=== PATIENT | female | born 1955 | race African-American/Black ===

== ENCOUNTER 2019-05-07 09:45 | Emergency (ER) | payer BC, MEDICARE ==
[~2019-05-07] VITALS: Ht 170.2 cm; Wt 88.1 kg
[~2019-05-07 09:45] MED LIST: ACET500T33 PO; ASCO-151 PO; ASPI-630 PO; ATOR20TA58 PO; CALC-98 PO; DEXA4TAB PO; HYDR-2759 PO; INSU100C4 SQ; INSU100I13 SQ; LOSA100T14 PO; METF10007 PO; NAPR-695 PO; ONDA8TAB14 PO; OXYC1TAB15 PO; PROC5TAB14 PO; VITA1CAP PO
--- NOTE | 2019-05-07 10:47 | PHYS DOC ---
Past Medical History Past Medical History: Cancer, CVA, Diabetes-Type II, Hypertension, Other Additional Past Medical Histor: "lymph node cancer" Past Surgical History: Tonsillectomy, Other Additional Past Surgical Histo: foot, shoulder,lymph node removal bilat axila Alcohol Use: Rarely Drug Use: None Adult General Chief Complaint Chief Complaint: HYPERTENSION HPI HPI Patient is a 63 y/o AAF, who has a Hx of HTN, who presents to the emergency room for evaluation. She states that she felt a little nauseated and lightheaded earlier in the day today and went to an urgent care center. They checked her blood pressure, which was 2:15 systolic, and sent her to the emergency [facility]. The patient states that she did not take her blood pressure medication this morning but took it at the urgent care facility, and by the time she arrives in the emergency department she is completely asymptomatic. She denies any current dizziness, and has not had any chest pain, headache, and denies any current nausea, has not had any abdominal pain, vomiting, diarrhea, numbness, weakness, or vision changes. Her blood pressure is currently 168/71. She is currently asymptomatic. 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 There are no alleviating or exacerbating factors to the patient's symptoms, except as noted above. Review of Systems Review of Systems Constitutional: Denies fever or chills [] Eyes: Denies change in visual acuity, redness, or eye pain [] HENT: Denies nasal congestion or sore throat [] Respiratory: Denies cough or shortness of breath [] Cardiovascular: The patient denies any shortness of breath, chest pain, palpitations, or orthopnea [] GI: Denies abdominal pain, current nausea, vomiting, bloody stools or diarrhea [] : Denies dysuria or hematuria [] Musculoskeletal: Denies back pain or joint pain [] Integument: Denies rash or skin lesions [] Neurologic: Denies headache, focal weakness or sensory changes [] Endocrine: Denies polyuria or polydipsia [] All other systems were reviewed and found to be within normal limits, except as documented in this note. Allergies Allergies Allergies Coded Allergies Type Severity Reaction Last Updated Verified hydrochlorothiazide Allergy Intermediate Rash 08/20/18 Yes lisinopril Adverse Reaction Unknown HEARTBURN SYMPTOMS (CHEST PAIN) 08/19/18 Yes Uncoded Allergies Type Severity Reaction Last Updated Verified CHLORINE Allergy Intermediate Rash 08/16/18 Physical Exam Physical Exam PHYSICAL EXAM: CONSTITUTIONAL: Well developed, well nourished HEAD: normocephalic, atraumatic EENT: PERRL, EOMI. Conjunctivae normal color, sclerae non-icteric; moist mucous membranes. NECK: Supple, non-tender; no meningismus. LUNGS: Lungs CTA, breathing even and unlabored. Normal air movement. HEART: Regular rate and rhythm, no murmur CHEST: No deformity; non-tender ABDOMEN: The abdomen is soft, and non-tender, no masses or bruits. EXTREM: Normal ROM; no deformity, no calf tenderness. Normal pulses palpable in all extremities. There is no pedal edema. SKIN: No rash; no diaphoresis NEURO: Alert; normal speech and cognition; CN's grossly intact; strength grossly intact without focal deficit. BACK: No CVA TTP. Current Patient Data Vital Signs Vital Signs Date Time Temp Pulse Resp B/P (MAP) Pulse Ox O2 Delivery O2 Flow Rate FiO2 05/07/19 09:55 97.7 74 20 191/73 (112) 100 Room Air 97.7 Lab Values Laboratory Tests Test 05/07/19 11:00 White Blood Count 10.3 x10^3/uL (4.0-11.0) Red Blood Count 3.80 x10^6/uL (3.50-5.40) Hemoglobin 11.0 g/dL (12.0-15.5) L Hematocrit 32.1 % (36.0-47.0) L Mean Corpuscular Volume 84 fL (79-100) Mean Corpuscular Hemoglobin 29 pg (25-35) Mean Corpuscular Hemoglobin Concent 34 g/dL (31-37) Red Cell Distribution Width 17.2 % (11.5-14.5) H Platelet Count 280 x10^3/uL (140-400) Neutrophils (%) (Auto) 80 % (31-73) H Lymphocytes (%) (Auto) 13 % (24-48) L Monocytes (%) (Auto) 6 % (0-9) Eosinophils (%) (Auto) 2 % (0-3) Basophils (%) (Auto) 1 % (0-3) Neutrophils # (Auto) 8.2 x10^3/uL (1.8-7.7) H Lymphocytes # (Auto) 1.3 x10^3/uL (1.0-4.8) Monocytes # (Auto) 0.6 x10^3/uL (0.0-1.1) Eosinophils # (Auto) 0.2 x10^3/uL (0.0-0.7) Basophils # (Auto) 0.1 x10^3/uL (0.0-0.2) Sodium Level 141 mmol/L (136-145) Potassium Level 4.3 mmol/L (3.5-5.1) Chloride Level 105 mmol/L (98-107) Carbon Dioxide Level 28 mmol/L (21-32) Anion Gap 8 (6-14) Blood Urea Nitrogen 9 mg/dL (7-20) Creatinine 0.9 mg/dL (0.6-1.0) Estimated GFR (Cockcroft-Gault) 76.0 Glucose Level 170 mg/dL (70-99) H Calcium Level 9.5 mg/dL (8.5-10.1) Troponin I Quantitative < 0.017 ng/mL (0.000-0.055) Laboratory Tests 05/07/19 11:00 Laboratory Tests 05/07/19 11:00 EKG EKG Normal sinus rhythm a rate of 75 beats for minute, normal axis, normal intervals, poor anterior R progression, with no acute ischemic ST/T changes present. Nonspecific changes are present.[] Radiology/Procedures Radiology/Procedures [] Course & Med Decision Making Course & Med Decision Making Pertinent Lab studies reviewed. (See chart for details) []12:00 PM: The patient's condition remains a stable. She remains asymptomatic. I discussed importance of blood pressure medication compliance, blood sugar monitoring, as she is a diabetic, the need for close PCP follow-up, and return precautions. Dragon Disclaimer Dragon Disclaimer This electronic medical record was generated, in whole or in part, using a voice recognition dictation system. Departure Departure Impression: Primary Impression: Hypertension Disposition: 01 HOME, SELF-CARE Condition: STABLE Referrals: KELTON WEST MD (PCP) Patient Instructions: Dizziness, Hypertension, Nausea, Adult SOLANGE MICHAEL MD May 07, 2019 10:47
[2019-05-07 11:29] LABS: BASO # 0.1 x10^3/uL (0.0-0.2); BASO % 1 % (0-3); CALCIUM 9.5 mg/dL (8.5-10.1); CREATININE 0.9 mg/dL (0.6-1.0); EOS # 0.2 x10^3/uL (0.0-0.7); EOS % 2 % (0-3); HEMATOCRIT 32.1 % (36.0-47.0); LYMPH # 1.3 x10^3/uL (1.0-4.8); LYMPH % 13 % (24-48); MEAN CORPUSCULAR HEMOGLOBIN 29 pg (25-35); MEAN CORPUSCULAR HGB CONC 34 g/dL (31-37); MEAN CORPUSCULAR VOLUME 84 fL (79-100); MONO # 0.6 x10^3/uL (0.0-1.1); MONO % 6 % (0-9); NEUT # 8.2 x10^3/uL (1.8-7.7); NEUT % 80 % (31-73); PLATELET COUNT 280 x10^3/uL (140-400); POTASSIUM 4.3 mmol/L (3.5-5.1); RED CELL DISTRIBUTION WIDTH 17.2 % (11.5-14.5); WHITE BLOOD COUNT 10.3 x10^3/uL (4.0-11.0)
[2019-05-07 12:00] VITALS: BP 176/75
--- NOTE | 2019-05-07 13:36 | EKG ---
[facility] [address] [place] [address] Test Date: 2019-05-07 Test Time: 10:45:00 Pat Name: ERNIE GANN Department: Room: Gender: F [employer]: : 1955 Requested By: SOLANGE MICHAEL Order Number: [id number] Reading MD: Suhas Castellano MD Measurements Intervals [place] Rate: 75 P: 47 CT: 176 QRS: 6 QRSD: 84 T: 50 QT: 400 QTc: 449 Interpretive Statements SINUS RHYTHM Electronically Signed On 05-09-2019 15:39:35 CDT by Suhas Castellano MD
== END 2019-05-07 12:21 | disposition home or self-care (01) ==
LOC: ER 09:45 → EDBD 09:45 → ER 12:21
DX: I10 Essential (primary) hypertension (principal); R11.0 Nausea; R42 Dizziness and giddiness; E11.9 Type 2 diabetes mellitus without complications; Z86.73 Personal history of transient ischemic attack (TIA), and cerebral infarction without residual deficits; Z90.89 Acquired absence of other organs; Z88.8 Allergy status to other drugs, medicaments and biological substances
CPT/HCPCS: 36415; 80048; 84484; 85025; 93005; 99285-25